=== PATIENT | female | born 1945 | race Caucasian/White ===

== ENCOUNTER → 2020-05-03 14:31 | Outpatient (CLI) | payer MEDICARE, SELFPAY ==
[2020-05-03 13:42] VITALS: BMI 23.1
[2020-05-03 16:05] LABS: AST(SGOT) 30 U/L (15-37); Alanine Aminotransfer ALT/SGPT 63 U/L (13-56); Albumin, Serum 3.4 g/dL (3.2-5.0); Alkaline Phosphatase 124 U/L (45-117); Bilirubin, Direct 0.18 mg/dL (0.00-0.30); Free T3 3.9 pg/mL (2.18-3.98); Globulin 3.2 g/dL (2.2-4.2); Protein, Total 6.6 g/dL (6.4-8.2); T4 Free Direct 1.92 ng/dL (0.76-1.46); Thyroid Stim Hormone (TSH) < 0.01 uIU/mL (0.358-3.74)
== END ==
PROVIDERS: Referring Provider Internal Medicine Endocrinology, Diabetes & Metabolism; Visit Provider Internal Medicine Endocrinology, Diabetes & Metabolism
DX: I10 Essential (primary) hypertension (principal); E05.00 Thyrotoxicosis with diffuse goiter without thyrotoxic crisis or storm
CPT/HCPCS: 36415; 80076; 84439; 84443; 84481

== ENCOUNTER → 2020-07-25 15:17 | Outpatient (CLI) | payer MEDICARE, SELFPAY ==
[2020-07-25 14:26] VITALS: BMI 25.2
[2020-07-25 17:38] LABS: Free T3 1.7 pg/mL (2.18-3.98); T4 Free Direct 0.66 ng/dL (0.76-1.46)
== END ==
PROVIDERS: Referring Provider Internal Medicine Endocrinology, Diabetes & Metabolism; Visit Provider Internal Medicine Endocrinology, Diabetes & Metabolism
DX: E05.00 Thyrotoxicosis with diffuse goiter without thyrotoxic crisis or storm (principal)
CPT/HCPCS: 36415; 84439; 84443; 84481